=== PATIENT | male | born 1935 | race Caucasian/White ===

== ENCOUNTER 2019-08-04 12:58 | Day surgery (SDC) | payer MEDICARE, OTHER ==
[~2019-08-04] VITALS: Ht 167.6 cm; Wt 64.5 kg
[~2019-08-04 12:58] MED LIST: LIDOCAINE/PF 2% 5 ML VIAL INJ ONE; PROPOFOL 1% 20 ML VIAL IVP ONE; SODIUM CHLORIDE 0.9% 1,000 ML IV ONE
[2019-08-04] MEDS ORDERED: OMEP20 PO (13:02)
[2019-08-04] MEDS ORDERED: BISA-151 PO (13:02)
[2019-08-04] MEDS ORDERED: TOLT2CAP PO (13:02)
== END 2019-08-04 16:35 | disposition home or self-care (01) ==
LOC: SURGERY 12:58
PROVIDERS: ATTEND Internal Medicine Gastroenterology
DX: K25.9 Gastric ulcer, unspecified as acute or chronic, without hemorrhage or perforation (principal); R13.10 Dysphagia, unspecified; K22.2 Esophageal obstruction; K44.9 Diaphragmatic hernia without obstruction or gangrene; K29.50 Unspecified chronic gastritis without bleeding; D64.9 Anemia, unspecified; Z87.891 Personal history of nicotine dependence; Z98.890 Other specified postprocedural states
CPT/HCPCS: 43239; 88305; 88312; 88313; C1769; J2704; J3490; J7030